=== PATIENT | male | born 1960 | race Asian ===

== ENCOUNTER 2020-08-01 08:53 | Emergency (ER) | payer OTHER ==
[~2020-08-01] VITALS: Ht 170.2 cm; Wt 81.6 kg
[2020-08-01 10:26] LABS: Urine Bacteria NONE SEEN /hpf (None Seen); Urine Blood 3+ /uL (Negative); Urine Specific Gravity 1.013 (1.001-1.035); Urine WBC <1 /hpf (0 - 3)
[2020-08-01 10:32] LABS: Basophils # (auto) 0 10 ^3/uL (0-0.2); Basophils % (auto) 0.7 % (0.0-2.0); Eosinophils # (auto) 0 10 ^3/uL (0-0.8); Hematocrit 48.2 % (41.0-53.0); Hemoglobin 16.7 g/dL (13.5-17.5); Lymphocytes # (auto) 0.7 10 ^3/uL (0.4-5.4); Lymphocytes % (auto) 10.8 % (10.0-50.0); Mean Corpuscular Hgb Conc. 34.7 g/dL (32.0-36.0); Mean Corpuscular Volume 89.3 fL (80.0-100.0); Monocytes # (auto) 0.2 10 ^3/uL (0-1.3); Neutrophils # (auto) 5.3 10 ^3/uL (1.6-8.6); Neutrophils % (auto) 84.5 % (37.0-80.0); Nucleated Red Blood Cells % 0.1 %; Red Blood Cells 5.39 10^6/uL (4.5-5.90); White Blood Cell 6.2 10^3/uL (4.4-10.8)
[2020-08-01 12:44] LABS: Potassium 3.4 mmol/L (3.5-5.1)
[2020-08-01 12:51] LABS: Albumin 3.9 g/dL (3.4-5.0); BUN/Creatinine Ratio 20.8; Calcium 8.3 mg/dL (8.5-10.1)
[2020-08-01 12:53] LABS: Total Protein 8.4 g/dL (6.4-8.2)
[2020-08-01] MEDS ORDERED: POTASSIUM EFFERVESENT TAB 25 MEQ PO ONE (13:15)
[2020-08-01 13:49] VITALS: BP 130/84
== END 2020-08-01 13:51 | disposition home or self-care (01) ==
LOC: ER 08:53
DX: R33.8 Other retention of urine (principal); E87.6 Hypokalemia
CPT/HCPCS: 36415; 51702; 80053; 81001; 85025; 93005